=== PATIENT | female | born 1955 | race Caucasian/White ===

== ENCOUNTER 2016-10-17 20:45 | Emergency (ER) | payer OTHER ==
[2016-10-17 21:43] LABS: BASOPHIL % 0.5 % (0.0-0.4); Eosinophil % 1.3 % (0.00-5.0); Granulocytes % 71.9 % (36.0-66.0); Lymphocytes % 20.8 % (24.0-44.0); Mean Cell Volume 85.3 fl (78-100); Mean Corpuscular Hemoglobin 26.7 pg (26-32); Mean Platelet Volume 10.9 fl (6-9.5); Monocytes % 5.5 % (0.0-12.0); Platelet Count 268 K/mm3 (150-450); Red Blood Count 5.65 M/mm3 (4.1-5.4); Red Cell Distribution Width 15.9 % (11.5-14.0); White Blood Count 6.3 K/mm3 (4.0-10.5)
[2016-10-17 21:44] LABS: Bacteria RARE /HPF (NEGATIVE); COMPLETE URINE MICROSCOPIC? YES; Collection Type CLEAN CATCH; Epithelial Cells FEW /HPF (FEW); Mucus SLIGHT /HPF (NEGATIVE)
[2016-10-17 21:51] LABS: ALBUMIN 3.8 g/dL (3.4-5.0); ALKALINE PHOSPHATASE 86 U/L (46-116); ANION GAP 17.9 MEQ/L (5-15); BILIRUBIN,TOTAL 0.5 mg/dL (0.2-1.0); BLOOD UREA NITROGEN 13 mg/dL (9-20); CHLORIDE 101 mEq/L (98-107); Carbon Dioxide 24.7 mEq/L (21-32); Glucose 286 MG/DL (70-110); Potassium 4.3 mEq/L (3.5-5.1); SGOT/AST 42 U/L (15-37); SGPT/ALT 59 U/L (12-78); SODIUM 139 mEq/L (136-145); Total Protein 7.8 gm/dL (6.4-8.2)
[2016-10-17] MEDS ORDERED: Phenergan 25 MG INJ IV ONE (22:36)
[2016-10-17] MEDS ORDERED: Sodium Chloride 0.9% 1000 ML 1,000 ML IV STA (22:36)
[2016-10-17] MEDS ORDERED: MORPHINE SULFATE 4 MG INJ IV ONE (22:36)
[2016-10-17] MEDS ORDERED: Sodium Chloride 0.9% 1000 ML 1,000 ML ONE (22:39)
[2016-10-17] MEDS ORDERED: MORPHINE SULFATE 4 MG INJ ONE (22:39)
[2016-10-17] MEDS ORDERED: Phenergan 25 MG INJ ONE (22:39)
--- NOTE | 2016-10-17 22:43 | ERPHSYRPT ---
- History of Present Illness Time Seen by Provider: 10/17/16 22:29 Source: patient Exam Limitations: no limitations Patient Subjective Stated Complaint: pt has been having bilat pain in her hips and buttocks that radiates donw both legs for several days -tonight she decided she couldn't take it anymore and nedded to find out what is causing the pain - she has been taking her husbands hydrocodone without releif -she is being worked up for elevated liver enzymes and her sugar has been running high recently-she thinks her right breast prosthesis is leaking and she complains of sweating Triage Nursing Assessment: pt is aw Physician History: This is a 61-year-old white female with history of diabetes, hypercholesterolemia, high blood pressure, anxiety, ovarian cancer, breast cancer She arrives with complaint of pain in her low back radiating down both bilateral hips down to her feet symptoms going on for 6 days patient states pain has been quite severe his has been so severe that she has been taking her 's pain medications She is not having any problems urinating she is having nausea and vomiting. Past medical history includes diabetes, hypercholesterolemia, high blood pressure, anxiety, ovarian cancer, breast cancer Past surgical history includes hysterectomy Timing/Duration: day(s) (6 days) Severity: moderate Modifying Factors: Improves With: nothing Associated Symptoms: nausea, vomiting, other (pain in the low lumbar area radiating down both posterior hips) Allergies/Adverse Reactions: Penicillins Allergy (Intermediate, Verified 10/17/16 21:32) Swelling Home Medications: Alprazolam [Xanax 0.25 mg] 0.25 mg PO TID PRN PRN 03/25/14 [History] Atorvastatin Calcium [Lipitor 20MG Tablet] 20 mg PO HS 03/25/14 [History] Clonidine HCl 0.1 mg [Catapres 0.1 MG] 0.1 mg PO HS 03/25/14 [History] Paroxetine HCl [Paxil] 40 mg PO HS 03/25/14 [History] Nitroglycerin 0.4 mg Tablet [Nitrostat 0.4 MG Tablet] 0.4 mg SL Q5MIN PRN MR X 3 PRN 11/18/14 [History] Hx Tetanus, Diphtheria Vaccination/Date Given: No Hx Influenza Vaccination/Date Given: No Hx Pneumococcal Vaccination/Date Given: No - Review of Systems Constitutional: No Fever, No Chills Eyes: No Symptoms Ears, Nose, & Throat: No Symptoms Respiratory: No Cough, No Dyspnea Cardiac: No Chest Pain, No Edema, No Syncope Abdominal/Gastrointestinal: Nausea, Vomiting, No Abdominal Pain, No Diarrhea, No Constipation, No Hematemesis, No Hematochezia, No Melena, No Dysphagia Genitourinary Symptoms: No Dysuria, No Vaginal Discharge, No Other Musculoskeletal: Back Pain (radiates down both posterior hips to her feet), No Deformity, No Injury, No Joint Redness, No Joint Pain Skin: No Rash Neurological: No Dizziness, No Focal Weakness, No Sensory Changes Psychological: No Symptoms Endocrine: No Symptoms All Other Systems: Reviewed and Negative - Past Medical History Pertinent Past Medical History: Yes Neurological History: No Pertinent History ENT History: No Pertinent History Cardiac History: Angina, High Cholesterol, Hypertension Respiratory History: No Pertinent History Endocrine Medical History: Diabetes Type II Musculoskeletal History: No Pertinent History GI Medical History: No Pertinent History History: Other Psycho-Social History: Anxiety, Depression Female Reproductive Disorders: Breast Cancer, Ovarian Cancer Other Medical History: BREAST CA-7 YRS IN REMISSION - Past Surgical History Past Surgical History: Yes Neuro Surgical History: No Pertinent History Cardiac: No Pertinent History Respiratory: No Pertinent History Gastrointestinal: No Pertinent History Genitourinary: No Pertinent History Musculoskeletal: No Pertinent History Female Surgical History: No Pertinent History, Hysterectomy, Mastectomy, Other - Social History Smoking Status: Former smoker Exposure to second hand smoke: No Drug Use: none Patient Lives Alone: No Significant Family History: no pertinent family hx - Female History Hx Last Menstrual Period: hyst - Nursing Vital Signs Nursing Vital Signs: Initial Vital Signs Temperature 98.4 F Temperature Source Oral Pulse Rate 68 Respiratory Rate 16 Blood Pressure 140/78 Pain Intensity 3 - Physical Exam General Appearance: no apparent distress, alert, other (Patient apparently cryingwhen nurse was in the room patient oes not appear to be inacute distress) Eye Exam: PERRL/EOMI (when I see patient), eyes nml inspection Ears, Nose, Throat Exam: normal ENT inspection, TMs normal, pharynx normal, moist mucous membranes Neck Exam: normal inspection, non-tender, supple, full range of motion Respiratory Exam: normal breath sounds, lungs clear, No respiratory distress Cardiovascular Exam: regular rate/rhythm, normal heart sounds, normal peripheral pulses Gastrointestinal/Abdomen Exam: soft, normal bowel sounds, No tenderness, No mass Back Exam: normal range of motion Extremity Exam: normal inspection, normal range of motion, other Neurologic Exam: alert, oriented x 3, cooperative, normal mood/affect, nml cerebellar function, nml station & gait, sensation nml, No motor deficits Skin Exam: normal color, warm, dry, No rash Lymphatic Exam: No adenopathy SpO2 Interpretation: normal SpO2: 96 Oxygen Delivery: Room Air Ordered Tests: Active Orders 24 hr Category Date Time Status Clean Catch Urine Specimen STAT Care 10/17/16 21:35 Active IV Insertion STAT Care 10/17/16 22:36 Active LUMBAR COMPLETE (MIN 4 VIEWS) Stat Exams 10/17/16 21:35 Taken PELVIS (1 OR 2 VIEWS) Stat Exams 10/17/16 21:35 Taken CBC W DIFF Stat Lab 10/17/16 21:25 Completed CMP Stat Lab 10/17/16 21:25 Completed UA W/ MICROSCOPIC Stat Lab 10/17/16 21:20 Completed Medication Summary Discontinued Medications Generic Name Dose Route Start Last Admin Trade Name Ugoq PRN Reason Stop Dose Admin Sodium Chloride 1,000 mls @ 999 mls/hr 10/17/16 22:36 10/17/16 22:40 Sodium Chloride 0.9% 1000 Ml IV 10/17/16 23:36 999 mls/hr .Q1H1M STA Administration Sodium Chloride Confirm 10/17/16 22:39 Sodium Chloride 0.9% 1000 Ml Administered 10/17/16 22:40 Dose 1,000 mls @ ud .ROUTE .STK-MED ONE Morphine Sulfate 4 mg 10/17/16 22:36 10/17/16 22:40 Morphine Sulfate 4 Mg Inj IV 10/17/16 22:37 4 mg STAT ONE Administration Morphine Sulfate Confirm 10/17/16 22:39 Morphine Sulfate 4 Mg Inj Administered 10/17/16 22:40 Dose 4 mg .ROUTE .STK-MED ONE Promethazine HCl 12.5 mg 10/17/16 22:36 10/17/16 22:40 Phenergan 25 Mg Inj IV 10/17/16 22:37 12.5 mg STAT ONE Administration Promethazine HCl Confirm 10/17/16 22:39 Phenergan 25 Mg Inj Administered 10/17/16 22:40 Dose 25 mg .ROUTE .STK-MED ONE Lab/Rad Data: Laboratory Result Diagrams 10/17/16 21:25 10/17/16 21:25 Laboratory Results 10/17/16 10/17/16 10/17/16 Range/Units 21:25 21:25 21:20 WBC 6.3 (4.0-10.5) K/mm3 RBC 5.65 H (4.1-5.4) M/mm3 Hgb 15.1 (12.0-16.0) gm/dl Hct 48.2 H (35-47) % MCV 85.3 (78-100) fl MCH 26.7 (26-32) pg MCHC 31.3 L (32-36) g/dl RDW 15.9 H (11.5-14.0) % Plt Count 268 (150-450) K/mm3 MPV 10.9 H (6-9.5) fl Gran % 71.9 H (36.0-66.0) % Lymphocytes % 20.8 L (24.0-44.0) % Monocytes % 5.5 (0.0-12.0) % Eosinophils % 1.3 (0.00-5.0) % Basophils % 0.5 (0.0-0.4) % Basophils # 0.03 (0-0.4) Sodium 139 (136-145) mEq/L Potassium 4.3 (3.5-5.1) mEq/L Chloride 101 (98-107) mEq/L Carbon Dioxide 24.7 (21-32) mEq/L Anion Gap 17.9 H (5-15) MEQ/L BUN 13 (9-20) mg/dL Creatinine 0.92 (0.55-1.30) mg/dl Estimated GFR > 60 ML/MIN Glucose 286 H (70-110) MG/DL Calcium 9.4 (8.5-10.1) mg/dL Total Bilirubin 0.5 (0.2-1.0) mg/dL AST 42 H (15-37) U/L ALT 59 (12-78) U/L Alkaline Phosphatase 86 (46-116) U/L Serum Total Protein 7.8 (6.4-8.2) gm/dL Albumin 3.8 (3.4-5.0) g/dL Ur Collection Type CLEAN CATCH Urine Color YELLOW (YELLOW) Urine Appearance SLIGHTLY CLOUDY (CLEAR) Urine pH 5.0 (5-6) Ur Specific [place] >=1.030 (1.005-1.025) Urine Protein TRACE (Negative) Urine Glucose (UA) >=1000 (NEGATIVE) mg/dL Urine Ketones NEGATIVE (NEGATIVE) Urine Nitrite NEGATIVE (NEGATIVE) Urine Bilirubin NEGATIVE (NEGATIVE) Urine Urobilinogen 0.2 (0-1) mg/dL Urine WBC (Auto) NEGATIVE (NEGATIVE) Urine RBC (Auto) TRACE NON-HEM (0-5) Anthony/ul Urine Microscopic RBC 0-2 (0-2) /HPF Ur Epithelial Cells FEW (FEW) /HPF Urine Bacteria RARE (NEGATIVE) /HPF Urine Mucus SLIGHT (NEGATIVE) /HPF Specimen Received 10/17/16:2119 - Progress Progress: improved Progress Note: 10/17/16 22:44 This is a 61-year-old white female with history of hypercholesterolemia high blood pressure anxiety, diabetes she arrives with complaint of pain in her low back radiating to both hips symptoms going on for 6 days. She states that she has been having nausea and vomiting. She states her pain has been so bad that she has been taking her 's pain medications. On interview patient apparently was crying during interview with the nurse when I come in patient does not appear to be in acute distress. She is able to flex both hips to 90 she is able to flex both knees. 90 she is able to have leg lifts bilaterally to 60 without pain she is tender in the low lumbar region. Will go ahead and obtain LS-spine, labs on this patient essentially normal patient does state that she's been vomiting and feels dehydrated she does have a specific gravity of greater than 1.030 glucose in her urine was greater than 1000 CBC essentially normal glucose for serum was 286 Will give patient morphine and Phenergan for pain 10/18/16 00:17 Patient feeling better after morphine. Labs essentially normal with the exception of elevated glucose. X-ray lumbar spine calcified aorta no acute fractures or dislocation. X-ray pelvis no acute fractures or dislocation. Lower extremity pulses intact 2 over 4 abdomen no masses. Will give patient a second dose of morphine plan home [place] for pain. Patient will need to follow-up with Dr. Selby. - Departure Time of Disposition: 00:18 Departure Disposition: Home Clinical Impression: Back pain Qualifiers: Back pain location: low back pain Chronicity: acute Back pain laterality: bilateral Sciatica presence: with sciatica Sciatica laterality: bilateral sciatica Qualified Code(s): M54.42 - Lumbago with sciatica, left side; M54.41 - Lumbago with sciatica, right side Condition: Fair Critical Care Time: No Instructions: Low Back Pain Additional Instructions: Return home. [place] 5/325 one to 2 orally every 4-6 hours as needed for pain #15. Follow-up with Dr. Selby. Return for acute distress or for severe symptoms. Prescriptions: Hydrocodone Bit/Acetaminophen [[place] 5/325Mg] 2 tab PO Q4-6HPRN PRN #15 tablet PRN Reason: Pain
[2016-10-18] MEDS ORDERED: NORCO 5/325 MG PO ONE (00:25)
[2016-10-18] MEDS ORDERED: MORPHINE SULFATE 4 MG INJ IV ONE (00:25)
[2016-10-18] MEDS ORDERED: NORCO 5/325 MG ONE (00:27)
[2016-10-18] MEDS ORDERED: MORPHINE SULFATE 4 MG INJ ONE (00:27)
[2016-10-18 00:43] VITALS: BP 132/71; PULSE 75; O2SAT 98
--- NOTE | 2016-10-18 08:55 | XRAY ---
Indication: Bilateral hip pain. Comparison: None Single AP pelvis demonstrates mild lumbosacral junction degenerative facet arthropathy and left pelvic phlebolith. No other bony, articular, or soft tissue abnormalities.
--- NOTE | 2016-10-18 08:57 | XRAY ---
Indication: Low back and bilateral hip pain. Comparison: None 5 views of the lumbar spine demonstrates 5 lumbar vertebral segments in normal alignment with minimal multilevel anterior endplate spurring and mild L5-S1 disc space narrowing with bilateral facet arthropathy. No acute fracture, subluxation, or pars interarticularis defect. Mild aortic calcifications. Impression: Degenerative changes in a otherwise negative lumbar spine.
== END 2016-10-18 00:42 | disposition home or self-care (01) ==
LOC: ED 20:45
DX: M54.2 Cervicalgia (principal); M54.41 Lumbago with sciatica, right side; R11.2 Nausea with vomiting, unspecified; E11.9 Type 2 diabetes mellitus without complications
CPT/HCPCS: 36000; 36415; 72110; 72170; 80053; 81000; 85025; 96360; 96374; 96375; 96376; 99283; J2270; J2550

== ENCOUNTER 2017-01-21 18:56 | Emergency (ER) | payer OTHER ==
[2017-01-21] MEDS ORDERED: Sodium Chloride 0.9% 1000 ML 1,000 ML IV SCH (19:15)
[2017-01-21] MEDS ORDERED: Hydromorphone 1 mg/ml Ampule IV ONE (19:15)
[2017-01-21] MEDS ORDERED: Zofran 4 MG/2 ML VIAL IV ONE (19:15)
[2017-01-21] MEDS ORDERED: Hydromorphone 1 mg/ml Ampule ONE (19:25)
[2017-01-21] MEDS ORDERED: Zofran 4 MG/2 ML VIAL ONE (19:25)
[2017-01-21] MEDS ORDERED: Sodium Chloride 0.9% 1000 ML 1,000 ML ONE (19:26)
[2017-01-21 19:32] LABS: BASOPHIL % 0.5 % (0.0-0.4); Eosinophil % 1.3 % (0.00-5.0); Granulocytes % 62.5 % (36.0-66.0); Lymphocytes % 27.5 % (24.0-44.0); Mean Cell Volume 85.1 fl (78-100); Mean Corpuscular Hemoglobin 27.2 pg (26-32); Mean Platelet Volume 10.7 fl (6-9.5); Monocytes % 8.2 % (0.0-12.0); Platelet Count 296 K/mm3 (150-450); Red Blood Count 5.44 M/mm3 (4.1-5.4); Red Cell Distribution Width 15.4 % (11.5-14.0); White Blood Count 7.6 K/mm3 (4.0-10.5)
[2017-01-21 19:50] VITALS: BP 146/67
[2017-01-21 19:51] LABS: ALBUMIN 3.5 g/dL (3.4-5.0); ANION GAP 13.9 MEQ/L (5-15); BILIRUBIN,TOTAL 0.4 mg/dL (0.2-1.0); Potassium 4.2 mEq/L (3.5-5.1); Total Protein 7.8 gm/dL (6.4-8.2)
--- NOTE | 2017-01-21 20:02 | ERPHSYRPT ---
- History of Present Illness Time Seen by Provider: 01/21/17 19:00 Historian: patient, family Exam Limitations: no limitations Patient Subjective Stated Complaint: reports constant RUQ abd pain since 1900 yesterday, "after eating pizza" denies other GI/ symptoms Triage Nursing Assessment: ambulatory to treatment area - slow/steady gait - moves all extremities with equal strength. resps shallow per pain - non- labored. skin pale/dry - no rash/injury. alert/oriented - grimmacing affect Physician History: patient developed RUQ abd pain after eating sausage and pepperoni pizza last night; constant; no radiation; no N&V; no f or chilss; no prior hx; no trauma or travel; no exposures; BMAnd voids ok; hx of irritable bowel; this is different Timing/Duration: yesterday (onset), gradual onset, worse Activities at Onset: none Quality: aching, sharpness Abdominal Pain Onset Location: RUQ Pain Radiation: no radiation Severity of Pain-Max: moderate (7/10) Severity of Pain-Current: moderate (7/10) Modifying Factors: Improves With: nothing Associated Symptoms: denies symptoms Previous symptoms: no prior history Allergies/Adverse Reactions: Penicillins Allergy (Intermediate, Verified 01/21/17 19:02) Swelling Home Medications: Alprazolam [Xanax 0.25 mg] 0.25 mg PO TID PRN PRN 03/25/14 [History] Atorvastatin Calcium [Lipitor 20MG Tablet] 20 mg PO HS 03/25/14 [History] Paroxetine HCl [Paxil] 40 mg PO HS 03/25/14 [History] Empagliflozin [Jardiance] 0 mg DAILY 10/18/16 [History] Metformin HCl 1000 mg [Glucophage 1000 MG] 500 mg PO BID 10/18/16 [History] Omeprazole [Prilosec] 0 mg PO DAILY 10/18/16 [History] Stomach Med 10/18/16 [History] Hx Tetanus, Diphtheria Vaccination/Date Given: No Hx Influenza Vaccination/Date Given: No Hx Pneumococcal Vaccination/Date Given: No Immunizations Up to Date: Yes - Review of Systems Constitutional: No Symptoms Eyes: No Symptoms Ears, Nose, & Throat: No Symptoms Respiratory: No Cough, No Dyspnea, No Wheezing Cardiac: No Chest Pain, No Palpitations, No Syncope Abdominal/Gastrointestinal: Abdominal Pain, Constipation (chronic), No Nausea, No Vomiting, No Diarrhea Genitourinary Symptoms: No Symptoms Musculoskeletal: No Symptoms Skin: No Symptoms Neurological: No Symptoms Psychological: Depression, No Suicidal Ideations, No Homicidal Ideations Endocrine: Polyuria, Polydipsia, Excessive Sweating Hematologic/Lymphatic: No Symptoms Immunological/Allergic: No Symptoms - Past Medical History Pertinent Past Medical History: Yes Neurological History: No Pertinent History ENT History: No Pertinent History Cardiac History: Angina, High Cholesterol, Hypertension Respiratory History: No Pertinent History Endocrine Medical History: Diabetes Type II Musculoskeletal History: No Pertinent History GI Medical History: No Pertinent History History: Other Psycho-Social History: Anxiety, Depression Female Reproductive Disorders: Breast Cancer, Ovarian Cancer Other Medical History: BREAST CA - Past Surgical History Past Surgical History: Yes Neuro Surgical History: No Pertinent History Cardiac: No Pertinent History Respiratory: No Pertinent History Gastrointestinal: No Pertinent History Genitourinary: No Pertinent History Musculoskeletal: No Pertinent History Female Surgical History: No Pertinent History, Hysterectomy, Mastectomy, Other - Social History Smoking Status: Never smoker Exposure to second hand smoke: No Alcohol Use: None Drug Use: none Patient Lives Alone: No Significant Family History: no pertinent family hx - Female History Hx Last Menstrual Period: n/a Hx Now: No - Nursing Vital Signs Nursing Vital Signs: Initial Vital Signs Temperature 98.1 F Temperature Source Oral Pulse Rate 64 Respiratory Rate 16 Blood Pressure [] 146/67 Pain Intensity 7 - Physical Exam General Appearance: moderate distress (RUQ abd pain), alert, obese, other ( clammy chronic) Eye Exam: PERRL/EOMI, eyes nml inspection, No photophobia Ears, Nose, Throat Exam: normal ENT inspection, TMs normal, pharynx normal, moist mucous membranes Neck Exam: normal inspection, non-tender, supple, full range of motion, No meningismus, No JVD Respiratory Exam: normal breath sounds, lungs clear, airway intact, No chest tenderness, No respiratory distress Cardiovascular Exam: regular rate/rhythm, normal heart sounds, normal peripheral pulses, capillary refill <2 sec, No murmur Gastrointestinal/Abdomen Exam: soft, normal bowel sounds, tenderness (RUQ pos carlton sign), No distention, No guarding, No pulsatile mass, No rebound, No organomegaly Pelvic Exam: deferred Rectal Exam: deferred Back Exam: normal inspection, normal range of motion, No CVA tenderness, No vertebral tenderness Extremity Exam: normal inspection, normal range of motion, No calf tenderness, No glenys's sign Neurologic Exam: alert, oriented x 3, cooperative, tugger operator II-XII nml as tested, normal mood/affect, nml cerebellar function, nml station & gait Skin Exam: normal color, warm, No rash, No other (c) SpO2 Interpretation: normal (lammy chronic) SpO2: 94 Oxygen Delivery: Room Air - Course Nursing assessment & vital signs reviewed: Yes - Radiology Exams Abdomen X-ray Interpretation: Interpreted by me, Other (NAD) Ordered Tests: Active Orders 24 hr Category Date Time Status IV Insertion STAT Care 01/21/17 19:15 Active Re-Check Vital Signs STAT Care 01/21/17 19:15 Active KUB Stat Exams 01/21/17 19:16 Taken AMYLASE Stat Lab 01/21/17 19:20 Completed CBC W DIFF Stat Lab 01/21/17 19:20 Completed CMP Stat Lab 01/21/17 19:20 Completed LIPASE Stat Lab 01/21/17 19:20 Completed Medication Summary Generic Name Dose Route Start Last Admin Trade Name Freq PRN Reason Stop Dose Admin Sodium Chloride 1,000 mls @ 100 mls/hr 01/21/17 19:15 01/21/17 19:30 Sodium Chloride 0.9% 1000 Ml IV 02/20/17 19:14 100 mls/hr .Q10H LEIDA Administration Discontinued Medications Generic Name Dose Route Start Last Admin Trade Name Freq PRN Reason Stop Dose Admin Hydromorphone HCl 1 mg 01/21/17 19:15 01/21/17 19:30 Hydromorphone 1 Mg/Ml Ampule IV 01/21/17 19:16 1 mg STAT ONE Administration Hydromorphone HCl Confirm 01/21/17 19:25 Hydromorphone 1 Mg/Ml Ampule Administered 01/21/17 19:26 Dose 1 mg .ROUTE .STK-MED ONE Ondansetron HCl 4 mg 01/21/17 19:15 01/21/17 19:30 Zofran 4 Mg/2 Ml Vial IV 01/21/17 19:16 4 mg STAT ONE Administration Ondansetron HCl Confirm 01/21/17 19:25 Zofran 4 Mg/2 Ml Vial Administered 01/21/17 19:26 Dose 4 mg .ROUTE .STK-MED ONE Lab/Rad Data: Laboratory Result Diagrams 01/21/17 19:20 01/21/17 19:20 Laboratory Results 01/21/17 01/21/17 Range/Units 19:20 19:20 WBC 7.6 (4.0-10.5) K/mm3 RBC 5.44 H (4.1-5.4) M/mm3 Hgb 14.8 (12.0-16.0) gm/dl Hct 46.3 (35-47) % MCV 85.1 (78-100) fl MCH 27.2 (26-32) pg MCHC 32.0 (32-36) g/dl RDW 15.4 H (11.5-14.0) % Plt Count 296 (150-450) K/mm3 MPV 10.7 H (6-9.5) fl Gran % 62.5 (36.0-66.0) % Lymphocytes % 27.5 (24.0-44.0) % Monocytes % 8.2 (0.0-12.0) % Eosinophils % 1.3 (0.00-5.0) % Basophils % 0.5 (0.0-0.4) % Basophils # 0.04 (0-0.4) Sodium 134 L (136-145) mEq/L Potassium 4.2 (3.5-5.1) mEq/L Chloride 99 (98-107) mEq/L Carbon Dioxide 25.0 (21-32) mEq/L Anion Gap 13.9 (5-15) MEQ/L BUN 13 (9-20) mg/dL Creatinine 1.02 (0.55-1.30) mg/dl Estimated GFR 58 ML/MIN Glucose 266 H (70-110) MG/DL Calcium 9.3 (8.5-10.1) mg/dL Total Bilirubin 0.4 (0.2-1.0) mg/dL AST 27 (15-37) U/L ALT 44 (12-78) U/L Alkaline Phosphatase 99 (46-116) U/L Serum Total Protein 7.8 (6.4-8.2) gm/dL Albumin 3.5 (3.4-5.0) g/dL Amylase 34 (25-115) U/L Lipase 137 (73-393) U/L reviewed - Progress Progress: improved (after meds), re-examined (after xr and meds) Progress Note: 01/21/17 20:02 rechecked; resting comfortably after meds; XR neg; labs neg except elevated BS 229; pain reduced to 2-3/10; abdomen non-tneder; discussed findings; will recheck; at bedside 01/21/17 20:18 recheck; at bedside; pain resolved; no other symptoms; reviewed results ; discussed treatment plan and instructions Counseled pt/family regarding: lab results, diagnosis, need for follow-up, rad results - Departure Time of Disposition: 20:19 Departure Disposition: Home Clinical Impression: Abdominal pain, Gallbladder attack Condition: Stable Critical Care Time: No Referrals: WAYNE SELBY [Primary Care Provider] - Instructions: Abdominal Pain-Adult, General Gallbladder Conditions Additional Instructions: gall bladder diet; GB US results to Dr Selby Follow-up with family doctor as directed. Call for appointment. Return if any problems. If you smoke please stop. Call or follow up with your family doctor for assistance if you need it to stop. Please wear your seatbelt when driving. Have a nice day. Thank you for allowing us to participate in your care today. :o) Dr Jose Ramon Auguste Prescriptions: Hydrocodone/Acetaminophen [Vicodin 5-300 mg Tablet] 1 each PO Q8H PRN PRN #10 tablet PRN Reason: Pain
[2017-01-21 21:08] VITALS: PULSE 82; O2SAT 99
--- NOTE | 2017-01-22 08:17 | XRAY ---
Indication: Right upper quadrant pain. Comparison: None KUB nonacute and nonobstructed. Solid organs and osseous structures unremarkable. Lung bases clear. Impression: Negative KUB.
== END 2017-01-21 21:09 | disposition home or self-care (01) ==
LOC: ED 18:56
DX: R10.11 Right upper quadrant pain (principal); Z79.899 Other long term (current) drug therapy; Z79.84 Long term (current) use of oral hypoglycemic drugs
CPT/HCPCS: 36000; 36415; 74000; 80053; 82150; 82962; 83690; 85025; 96360; 96361; 96374; 96375; 99284; 99285; J1170; J2405

== ENCOUNTER 2019-10-17 13:19 | Emergency (ER) | payer MEDICARE, OTHER ==
[2019-10-17] MEDS ORDERED: TORAdol 30 mg Injection IV ONE (15:13)
--- NOTE | 2019-10-17 15:31 | XRAY ---
Indication: Pneumonia. Flu symptoms. Comparison: December 09, 2015. Portable chest remains clear. Heart is not enlarged for AP portable technique. New left Port-A-Cath without complications. Bony thorax intact again with right axilla surgical clips and bilateral breast implants. Impression: Nonacute chest with chronic features.
[2019-10-17] MEDS ORDERED: TORAdol 30 mg Injection ONE (15:37)
[2019-10-17 15:56] LABS: Absolute Neutrophil Ct (ANC) 4.79 (1.4-6.9); BASOPHIL % 0.3 % (0.0-0.4); Basophil (Absolute #) 0.02 (0-0.4); Eosinophil % 0.6 % (0.00-5.0); Eosinophil (Absolute #) 0.04 (0-0.5); Hematocrit 42.2 % (35-47); Hemoglobin 13.1 gm/dl (12.0-16.0); Lymphocyte (Absolute #) 1.32 (1.0-4.6); Lymphocytes % 19.6 % (24.0-44.0); Mean Cell Volume 89.4 fl (78-100); Mean Corpuscular Hemoglobin 27.8 pg (26-32); Monocyte (Absolute #) 0.58 (0.0-1.3); Monocytes % 8.6 % (0.0-12.0); Neutrophil % 70.9 % (36.0-66.0); Platelet Count 179 K/mm3 (150-450); Red Blood Count 4.72 M/mm3 (4.1-5.4); Red Cell Distribution Width 15.7 % (11.5-14.0); White Blood Count 6.8 K/mm3 (4.0-10.5)
[2019-10-17 16:07] LABS: ALBUMIN 3.8 g/dL (3.5-5.0); ALKALINE PHOSPHATASE 132 U/L (38-126); ANION GAP 10.3 MEQ/L (5-15); BLOOD UREA NITROGEN 13 mg/dL (7-17); CHLORIDE 99 mmol/L (98-107); Calcium 9.3 mg/dL (8.4-10.2); Carbon Dioxide 30 mmol/L (22-30); Creatinine 1 0.74 mg/dL (0.52-1.04); Glucose 315 mg/dL (74-106); Potassium 4.1 mmol/L (3.5-5.1); SGOT/AST 39 U/L (14-36); SGPT/ALT 41 U/L (0-35); SODIUM 135 mmol/L (137-145); Total Protein 7.3 g/dL (6.3-8.2)
[2019-10-17 16:42] LABS: INFLUENZA A NEGATIVE (NEGATIVE); INFLUENZA B NEGATIVE (NEGATIVE)
[2019-10-17 16:43] LABS: RESPIRATORY SYNCTIAL VIRUS POSITIVE (Negative)
--- NOTE | 2019-10-17 17:21 | ERPHSYRPT ---
- History of Present Illness Time Seen by Provider: 10/17/19 15:17 Source: patient, family Exam Limitations: no limitations Patient Subjective Stated Complaint: "I have had a lot of fatigue and all over weakness, headache, cough, chills, body aches since New Years Yesenia. I have been diagnosed with teminal liver cancer, my oncologist gave me 2 months to live 18 months ago. I have been off chemo for a little while now but am suppose to go to [facility] tomorrow." Triage Nursing Assessment: Pt presents to ER with complaints of bounding headache, body aches, chills, cough, and runny nose since New Years yesenia. Pt is a [place] patient. Dx with terminal liver cancer. Pt is alert and oriented x 3. Appears weak and fatigued. Pt lungs are clear throughout, resp easy and unlabored at this time. Rates headache pain 8/10 scale. Pt denies nausea, vomiting, or diarrhea. Pt abd is soft and nontender to touch. Skin pale, warm, and dry. Afebrile. Pt walks and communicates without difficulty. Physician History: 64 yo presented with 10 days of URI symptoms with progressive worsening with nasal/sinus congestion and today started to have mild cough. no fever but chills and bodyaches with headache off and on . headache is mild with no other neuro sx. she has h/o metastatic liver cancer andis scheduled to see oncologist tomorrow. no abdominal pain/N/V. Timing/Duration: day(s) (8), worse Cough Quality/Degree: dry cough Possible Cause: unknown cause Modifying Factors: Improves With: nothing Associated Symptoms: chills, chest pain/soreness, cough, facial pain, headache, muscle aches, nasal congestion, nasal drainage, sore throat Allergies/Adverse Reactions: Penicillins Allergy (Intermediate, Verified 10/17/19 14:34) Swelling Home Medications: PARoxetine HCl [Paxil] 40 mg PO HS 03/25/14 [History] Hx Tetanus, Diphtheria Vaccination/Date Given: No Hx Influenza Vaccination/Date Given: No Hx Pneumococcal Vaccination/Date Given: No Immunizations Up to Date: No - Review of Systems Constitutional: Chills, Fatigue, Malaise Eyes: No Symptoms Ears, Nose, & Throat: Nose Congestion, Nose Discharge, Sinus Drainage, Throat Pain Respiratory: Cough Cardiac: No Symptoms Abdominal/Gastrointestinal: No Symptoms Genitourinary Symptoms: No Symptoms Musculoskeletal: Myalgias Neurological: No Symptoms Psychological: No Symptoms Endocrine: No Symptoms Hematologic/Lymphatic: No Symptoms Immunological/Allergic: No Symptoms - Past Medical History Pertinent Past Medical History: Yes Neurological History: No Pertinent History ENT History: No Pertinent History Cardiac History: Angina, High Cholesterol, Hypertension Respiratory History: No Pertinent History Endocrine Medical History: Diabetes Type II Musculoskeletal History: No Pertinent History GI Medical History: No Pertinent History History: Other Psycho-Social History: Anxiety, Depression Female Reproductive Disorders: Breast Cancer Other Medical History: LIVER CANCER - Past Surgical History Past Surgical History: Yes Neuro Surgical History: No Pertinent History Cardiac: No Pertinent History Respiratory: No Pertinent History Gastrointestinal: No Pertinent History Genitourinary: No Pertinent History Musculoskeletal: No Pertinent History Female Surgical History: No Pertinent History, Hysterectomy, Mastectomy, Other Other Surgical History: RECTAL REPAIR, BLADDER REPAIR - Social History Smoking Status: Former smoker Exposure to second hand smoke: No Alcohol Use: None Drug Use: none Patient Lives Alone: No Significant Family History: no pertinent family hx - Nursing Vital Signs Nursing Vital Signs: Initial Vital Signs Temperature 98.4 F 10/17/19 14:17 Pulse Rate 72 10/17/19 14:17 Respiratory Rate 18 10/17/19 14:17 Blood Pressure 166/76 10/17/19 14:17 O2 Sat by Pulse Oximetry 96 10/17/19 14:17 Pain Scale Pain Intensity 7 - Physical Exam General Appearance: no apparent distress Eye Exam: PERRL/EOMI, eyes nml inspection Ears, Nose, Throat Exam: TMs normal, pharyngeal erythema Neck Exam: normal inspection, non-tender, supple, full range of motion Respiratory Exam: normal breath sounds, lungs clear, No chest tenderness, No respiratory distress Cardiovascular Exam: regular rate/rhythm, normal heart sounds, normal peripheral pulses Gastrointestinal/Abdomen Exam: soft, normal bowel sounds, No tenderness, No distention, No mass, No guarding Back Exam: normal inspection, normal range of motion Extremity Exam: normal inspection, normal range of motion Neurologic Exam: alert, oriented x 3, cooperative, network design architect II-XII nml as tested, normal mood/affect, nml cerebellar function Skin Exam: normal color SpO2 Interpretation: normal SpO2: 94 O2 Delivery: Room Air - Course Nursing assessment & vital signs reviewed: Yes Ordered Tests: Active Orders 24 hr Category Date Time Status CHEST 1 VIEW (PORTABLE) Stat Exams 10/17/19 15:13 Completed CBC W DIFF Stat Lab 10/17/19 15:42 Completed CMP Stat Lab 10/17/19 15:42 Completed Urine Triage Profile Stat Lab 10/17/19 15:07 Uncollected Medication Summary Discontinued Medications Generic Name Dose Route Start Last Admin Trade Name Noreen PRN Reason Stop Dose Admin Ketorolac Tromethamine 30 mg 10/17/19 15:13 10/17/19 15:38 Toradol 30 Mg Injection IV 10/17/19 15:14 30 mg STAT ONE Administration Ketorolac Tromethamine Confirm 10/17/19 15:37 Toradol 30 Mg Injection Administered 10/17/19 15:38 Dose 30 mg .ROUTE .STMixers-MED ONE Lab/Rad Data: Laboratory Result Diagrams 10/17/19 15:42 10/17/19 15:42 Laboratory Results 10/17/19 10/17/19 10/17/19 Range/Units 15:50 15:42 15:42 WBC 6.8 (4.0-10.5) K/mm3 RBC 4.72 (4.1-5.4) M/mm3 Hgb 13.1 (12.0-16.0) gm/dl Hct 42.2 (35-47) % MCV 89.4 (78-100) fl MCH 27.8 (26-32) pg MCHC 31.0 L (32-36) g/dl RDW 15.7 H (11.5-14.0) % Plt Count 179 (150-450) K/mm3 MPV 10.0 (7.5-11.0) fl Gran % 70.9 H (36.0-66.0) % Eos # (Auto) 0.04 (0-0.5) Absolute Lymphs (auto) 1.32 (1.0-4.6) Absolute Monos (auto) 0.58 (0.0-1.3) Lymphocytes % 19.6 L (24.0-44.0) % Monocytes % 8.6 (0.0-12.0) % Eosinophils % 0.6 (0.00-5.0) % Basophils % 0.3 (0.0-0.4) % Absolute Granulocytes 4.79 (1.4-6.9) Basophils # 0.02 (0-0.4) Sodium 135 L (137-145) mmol/L Potassium 4.1 (3.5-5.1) mmol/L Chloride 99 (98-107) mmol/L Carbon Dioxide 30 (22-30) mmol/L Anion Gap 10.3 (5-15) MEQ/L BUN 13 (7-17) mg/dL Creatinine 0.74 (0.52-1.04) mg/dL Estimated GFR > 60.0 ML/MIN Glucose 315 H (74-106) mg/dL Calcium 9.3 (8.4-10.2) mg/dL Total Bilirubin 0.60 (0.2-1.3) mg/dL AST 39 H (14-36) U/L ALT 41 H (0-35) U/L Alkaline Phosphatase 132 H (38-126) U/L Serum Total Protein 7.3 (6.3-8.2) g/dL Albumin 3.8 (3.5-5.0) g/dL Influenza Type A Ag NEGATIVE (NEGATIVE) Influenza Type B Ag NEGATIVE (NEGATIVE) RSV (PCR) POSITIVE (Negative) Group A Strep Antibody NEGATIVE (NEGATIVE) - Progress Progress: improved, re-examined Air Movement: good Progress Note: 10/17/19 17:10 SHE IS GIVEN TORADOL FOR SYMPTOMATIC RELIEF AND HER HEADACHE IS GONE ON RE EVALUATION. NON FOCAL NEURO EXAM. UNREMARKABLE WORKUP IS ER EXCEPT FOR POSITIVE RSV WHICH I BELIEVE IS THE VIRAL INFECTION CAUSING HER SX. RECOMMENDED SUPPORTIVE CARE AND OUTPATIENT FOLLOW UP . DISCUSSED SX/SN OF WORSENING NEEDING RETURN WHICH SHE SEMS UNDERSTANDING. Blood Culture(s) Obtained: No Antibiotics given: No Counseled pt/family regarding: lab results, diagnosis, need for follow-up, rad results - Departure Departure Disposition: Home Clinical Impression: URI with cough and congestion Condition: Stable Critical Care Time: No Referrals: MONIKA HOLM [Primary Care Provider] - Follow Up with PCP (1-2 days for re evaluation) Additional Instructions: drink plenty of fluids. monitor blood sugar regularly. take ibuprofen /flonase as needed. follow up with PCP for re evaluations. return to ER for worsening cough/fever etc.
[2019-10-17 17:45] VITALS: BP 116/77; PULSE 70; O2SAT 100
== END 2019-10-17 17:45 | disposition home or self-care (01) ==
LOC: ED 13:19
DX: J06.9 Acute upper respiratory infection, unspecified (principal)
CPT/HCPCS: 36000; 36415; 71045; 80053; 85025; 87631; 87651; 96374; 99284; J1642; J1885

== ENCOUNTER 2020-12-18 22:50 | Emergency (ER) | payer MEDICARE, OTHER ==
--- NOTE | 2020-12-19 00:54 | ERPHSYRPT ---
- History of Present Illness Time Seen by Provider: 12/18/20 22:53 Source: patient, EMS Exam Limitations: no limitations Patient Subjective Stated Complaint: "I haven't had a bowel movement in four days." Triage Nursing Assessment: Patient reported constipation not resolved by home treatment. Denied abdominal pain, nausea, vomiting. Last BM 4 days ago. Reported history of bowel repair. Denied recent in jnjuries. Pupils 3mm PERRL. Neck supple non-tender. Symmetrical chest expansion. Heart tones regular/clear. Lungs clear to auscultation. Abdomen soft non-distended without hepatosplenomegaly. Bowel sounds present. Slight diffuse pressure to palpation of the abdomen. peripheral pulses +2 bilateral. Physician History: 65 years old female with history of metastatic cholangiocarcinoma on chemotherapy, constipation presented in the ER with inability to have a bowel movement for the last 4 days. She has taken [id number] medication along with Fleet enema with no response. Patient denies any abdominal pain but has pain in the rectal area. Patient reports she has been trying to manually disimpact herself but not successful. She denies any nausea or vomiting. Reports having similar symptoms in the past but not this severe. Denies taking any pain medications. Timing/Duration: day(s) (4), gradual onset, worse Severity: moderate Associated Symptoms: denies symptoms Allergies/Adverse Reactions: Penicillins Allergy (Intermediate, Verified 12/18/20 22:53) Swelling Home Medications: PARoxetine HCl [Paxil] 40 mg PO HS 03/25/14 [History] Alprazolam 0.25 mg [xanAX 0.25 MG] 1 tab PO DAILY PRN 12/18/20 [History] Insulin Aspart [Novolog] 5 unit SQ DAILY 12/18/20 [History] Insulin Glargine,Hum.rec.anlog [Lantus Solostar] 15 units SQ HS 12/18/20 [History] Pemigatinib [Pemazyre] 1 tab PO DAILY 12/18/20 [History] Hx Tetanus, Diphtheria Vaccination/Date Given: No Hx Influenza Vaccination/Date Given: No Hx Pneumococcal Vaccination/Date Given: No Travel Risk - International Travel Have you traveled outside of the country in past 3 weeks: No - Coronavirus Screening Are you exhibiting any of the following symptoms?: No Close contact with a COVID-19 positive Pt in past 14-21 Days: No - Review of Systems Constitutional: No Symptoms Eyes: No Symptoms Ears, Nose, & Throat: No Symptoms Respiratory: No Symptoms Cardiac: No Symptoms Abdominal/Gastrointestinal: Constipation Genitourinary Symptoms: No Symptoms Musculoskeletal: No Symptoms Neurological: No Symptoms Psychological: No Symptoms (50) Endocrine: No Symptoms Hematologic/Lymphatic: No Symptoms Immunological/Allergic: No Symptoms - Past Medical History Pertinent Past Medical History: Yes Neurological History: No Pertinent History ENT History: No Pertinent History Cardiac History: Angina, High Cholesterol, Hypertension Respiratory History: No Pertinent History Endocrine Medical History: Diabetes Type II Musculoskeletal History: No Pertinent History GI Medical History: No Pertinent History History: Other Psycho-Social History: Anxiety, Depression Female Reproductive Disorders: Breast Cancer Other Medical History: LIVER CANCER - Past Surgical History Past Surgical History: Yes Neuro Surgical History: No Pertinent History Cardiac: No Pertinent History Respiratory: No Pertinent History Gastrointestinal: No Pertinent History Genitourinary: No Pertinent History Musculoskeletal: No Pertinent History Female Surgical History: No Pertinent History, Hysterectomy, Mastectomy, Other Other Surgical History: RECTAL REPAIR, BLADDER REPAIR - Social History Smoking Status: Former smoker Exposure to second hand smoke: No Alcohol Use: None Drug Use: none Patient Lives Alone: No Significant Family History: no pertinent family hx - Female History Hx Now: No - Nursing Vital Signs Nursing Vital Signs: Initial Vital Signs Temperature 98.1 F 12/18/20 22:51 Pulse Rate 74 12/18/20 22:51 Respiratory Rate 18 12/18/20 22:51 Blood Pressure 158/70 12/18/20 22:51 O2 Sat by Pulse Oximetry 97 12/18/20 22:51 Pain Scale Pain Intensity 0 - Physical Exam General Appearance: no apparent distress, alert Eye Exam: eyes nml inspection Ears, Nose, Throat Exam: normal ENT inspection Neck Exam: normal inspection, non-tender, supple, full range of motion Respiratory Exam: normal breath sounds, lungs clear Cardiovascular Exam: regular rate/rhythm, normal heart sounds (Significant is been) Gastrointestinal/Abdomen Exam: soft, normal bowel sounds, No tenderness (2012) Back Exam: normal inspection, normal range of motion (Of absence) Extremity Exam: normal inspection, normal range of motion Neurologic Exam: alert, oriented x 3, cooperative Skin Exam: normal color SpO2 Interpretation: normal SpO2: 99 O2 Delivery: Room Air (2) Ordered Tests: Active Orders 24 hr Category Date Time Status OBSTR/ACUTE ABDOMEN SERIES Stat Exams 12/19/20 00:01 Taken - Progress Progress: improved Progress Note: 12/19/20 02:04 65 years old is evaluated for constipation. I have obtained acute abdomen series which are negative for any obstruction. She is given soapsuds enema and patient had a bowel movement while in the ER and feeling some relief. She is advised to take MiraLAX and stool softeners regularly and outpatient follow-up. I do not think she needs any other work-up and is stable for discharge. Counseled pt/family regarding: need for follow-up, rad results - Departure Departure Disposition: Home Clinical Impression: Constipation Qualifiers: Constipation type: other constipation type Qualified Code(s): K59.09 - Other constipation Condition: Stable Critical Care Time: No Referrals: LIDIA WHITFIELD, [facility] [Primary Care Provider] - (1-2 days for re evaluation) Instructions: Constipation, Adult (DC) Additional Instructions: Take MiraLAX and stool softeners regularly. Increase fiber supplements and diet. Follow-up with primary care physician for reevaluation. Prescriptions: Docusate Sodium 100 mg [Colace 100 MG] 100 mg PO BID 30 Days #60 cap Polyethylene Glycol 3350 [Miralax] 17 gm PO DAILY 30 Days #30 [email or web address]
[2020-12-19 02:40] VITALS: BP 118/50; PULSE 72; O2SAT 98
--- NOTE | 2020-12-19 09:19 | XRAY ---
Indication: Constipation. Obstruction. Comparison: Chest exam October 17, 2019. 2 view abdomen nonacute and nonobstructed with mild/moderate diffuse scattered colonic fecal debris. Solid organs unremarkable. Osseous structures intact with mild lower lumbar degenerative spondylosis. Single frontal chest again demonstrates normal heart and lungs with incidental left Port-A-Cath, bilateral breast implants, and right axilla surgical clips. Impression: Fecal stasis without obstruction. Continued nonacute one view chest with chronic features. Comment: Preliminary interpretation was made by [facility]. No critical discrepancy.
== END 2020-12-19 02:48 | disposition home or self-care (01) ==
LOC: ED 22:50
DX: K59.09 Other constipation (principal)
CPT/HCPCS: 74022; 99284

== ENCOUNTER 2020-12-25 18:45 | Emergency (ER) | payer MEDICARE, OTHER ==
[2020-12-25] MEDS ORDERED: Sodium Chloride 0.9% 1000 ML 1,000 ML IV STA (19:10)
[2020-12-25 19:39] LABS: Appearance SLIGHTLY CLOUDY (CLEAR); Bilirubin NEGATIVE (NEGATIVE); Blood NEGATIVE Ery/ul (0-5); Epithelial Cells RARE /HPF (FEW); Glucose 50 mg/dL (NEGATIVE); Ketones NEGATIVE (NEGATIVE); Leukocyte Esterase NEGATIVE (NEGATIVE); Mucus SLIGHT /HPF (NEGATIVE); Nitrite NEGATIVE (NEGATIVE); Protein,Urine Dip NEGATIVE (Negative); Specific Gravity 1.011 (1.005-1.025); Urobilinogen NEGATIVE mg/dL (0-1)
[2020-12-25] MEDS ORDERED: Sodium Chloride 0.9% 1000 ML 1,000 ML ONE (19:49)
[2020-12-25 20:12] LABS: Absolute Neutrophil Ct (ANC) 2.19 (1.4-6.9); BASOPHIL % 0.4 % (0.0-0.4); Basophil (Absolute #) 0.02 (0-0.4); Eosinophil % 1.5 % (0.00-5.0); Eosinophil (Absolute #) 0.07 (0-0.5); Hematocrit 40.8 % (35-47); Hemoglobin 12.9 gm/dl (12.0-16.0); Lymphocyte (Absolute #) 1.95 (1.0-4.6); Mean Cell Volume 90.9 fl (78-100); Mean Corpuscular Hemoglobin 28.7 pg (26-32); Mean Corpuscular Hgb Concent. 31.6 g/dl (32-36); Mean Platelet Volume 9.9 fl (7.5-11.0); Monocytes % 6.6 % (0.0-12.0); Neutrophil % 48.5 % (36.0-66.0); Platelet Count 121 K/mm3 (150-450); Red Blood Count 4.49 M/mm3 (4.1-5.4); Red Cell Distribution Width 14.9 % (11.5-14.0); White Blood Count 4.5 K/mm3 (4.0-10.5)
[2020-12-25 20:20] LABS: INR 1.07 (0.8-3.0); PROTIME 12.1 SECONDS (9.95-12.35)
[2020-12-25 20:25] LABS: ANION GAP 14.2 MEQ/L (5-15); BILIRUBIN,TOTAL 0.6 mg/dL (0.2-1.3); Calcium 9.9 mg/dL (8.4-10.2); Creatinine 1 1.13 mg/dL (0.52-1.04); EST GLOMERULAR FILTRATION RATE 51.2 ML/MIN; Total Protein 7.4 g/dL (6.3-8.2)
--- NOTE | 2020-12-25 20:44 | ERPHSYRPT ---
- History of Present Illness Time Seen by Provider: 12/25/20 19:10 Historian: patient Exam Limitations: no limitations Patient Subjective Stated Complaint: bloody stool Triage Nursing Assessment: pt to ED c/o blood in stool x 2 episodes today. repo rts bright red blood in toilet and while wiping. reports being in ED last week for constipation and enema. does c/o lower abd pain now, rates 1/10 dull. denies NV or urinary issues. 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 She denies nausea vomiting. She has very mild lower suprapubic/abdominal pain. She ordinarily has constipation. However, today she has had 4 bowel movements and 2 of them had bright red blood present. Patient is not dizzy patient is not short of breath. Patient became concerned because she is never had any side effects following or during the chemotherapy that she has had over the last several weeks. Timing/Duration: today Activities at Onset: none Quality: pressure (Mild) Abdominal Pain Onset Location: suprapubic Pain Radiation: no radiation Severity of Pain-Max: mild Severity of Pain-Current: mild Modifying Factors: Improves With: nothing Associated Symptoms: other (Bright red blood per rectum after 2 bowel movements) Previous symptoms: no prior history Allergies/Adverse Reactions: Penicillins Allergy (Intermediate, Verified 12/25/20 19:07) Swelling Home Medications: PARoxetine HCl [Paxil] 40 mg PO HS 03/25/14 [History] Alprazolam 0.25 mg [xanAX 0.25 MG] 1 tab PO DAILY PRN 12/18/20 [History] Insulin Aspart [Novolog] 5 unit SQ DAILY 12/18/20 [History] Insulin Glargine,Hum.rec.anlog [Lantus Solostar] 15 units SQ HS 12/18/20 [History] Pemigatinib [Pemazyre] 1 tab PO DAILY 12/18/20 [History] Hx Tetanus, Diphtheria Vaccination/Date Given: No Hx Influenza Vaccination/Date Given: No Hx Pneumococcal Vaccination/Date Given: No Travel Risk - International Travel Have you traveled outside of the country in past 3 weeks: No - Coronavirus Screening Are you exhibiting any of the following symptoms?: No Close contact with a COVID-19 positive Pt in past 14-21 Days: No - Review of Systems Constitutional: No Symptoms Eyes: No Symptoms Ears, Nose, & Throat: No Symptoms Respiratory: No Symptoms Cardiac: No Symptoms Abdominal/Gastrointestinal: Abdominal Pain (Mild suprapubic pressure/tenderness), Hematochezia (2 out of 4 bowel movements today) Genitourinary Symptoms: No Symptoms Musculoskeletal: No Symptoms Skin: No Symptoms Neurological: No Symptoms Psychological: No Symptoms Endocrine: No Symptoms Hematologic/Lymphatic: No Symptoms Immunological/Allergic: No Symptoms All Other Systems: Reviewed and Negative - Past Medical History Pertinent Past Medical History: Yes Neurological History: No Pertinent History ENT History: No Pertinent History Cardiac History: Angina, High Cholesterol, Hypertension Respiratory History: No Pertinent History Endocrine Medical History: Diabetes Type II Musculoskeletal History: No Pertinent History GI Medical History: No Pertinent History History: Other Psycho-Social History: Anxiety, Depression Female Reproductive Disorders: Breast Cancer Other Medical History: LIVER CANCER - Past Surgical History Past Surgical History: Yes Neuro Surgical History: No Pertinent History Cardiac: No Pertinent History Respiratory: No Pertinent History Gastrointestinal: No Pertinent History Genitourinary: No Pertinent History Musculoskeletal: No Pertinent History Female Surgical History: No Pertinent History, Hysterectomy, Mastectomy, Other Other Surgical History: RECTAL REPAIR, BLADDER REPAIR - Social History Smoking Status: Former smoker Exposure to second hand smoke: No Alcohol Use: None Drug Use: none Patient Lives Alone: No Significant Family History: no pertinent family hx - Female History Hx Now: No - Nursing Vital Signs Nursing Vital Signs: Initial Vital Signs Temperature 98.1 F 12/25/20 18:56 Pulse Rate 79 12/25/20 18:56 Respiratory Rate 18 12/25/20 18:56 Blood Pressure 154/66 12/25/20 18:56 O2 Sat by Pulse Oximetry 97 12/25/20 18:56 Pain Scale Pain Intensity 0 - Physical Exam General Appearance: no apparent distress, alert, anxiety, obese Eye Exam: PERRL/EOMI, eyes nml inspection Ears, Nose, Throat Exam: normal ENT inspection, moist mucous membranes Neck Exam: normal inspection, non-tender, supple, full range of motion Respiratory Exam: normal breath sounds, lungs clear, airway intact, No chest tenderness, No respiratory distress Cardiovascular Exam: regular rate/rhythm, normal heart sounds, normal peripheral pulses Gastrointestinal/Abdomen Exam: soft, normal bowel sounds, tenderness (Suprapubic mild pressure) Pelvic Exam: not done Rectal Exam: not done Back Exam: normal inspection, normal range of motion, No CVA tenderness, No vertebral tenderness Extremity Exam: normal inspection, normal range of motion, pelvis stable Neurologic Exam: alert, oriented x 3, cooperative, 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, normal mood/affect, nml cerebellar function, nml station & gait, sensation nml Skin Exam: normal color, warm, dry Lymphatic Exam: No adenopathy SpO2 Interpretation: normal SpO2: 96 O2 Delivery: Room Air Ordered Tests: Active Orders 24 hr Category Date Time Status IV Insertion STAT Care 12/25/20 19:10 Active Orthostatic Vital Signs STAT Care 12/25/20 19:12 Active ABDOMEN AND PELVIS W/0 CONTRAS [CT] Stat Exams 12/25/20 19:11 Taken CBC W DIFF Stat Lab 12/25/20 18:00 Completed CMP Stat Lab 12/25/20 18:00 Completed Lactic Acid Stat Lab 12/25/20 20:00 Completed PROTIME WITH INR Stat Lab 12/25/20 18:00 Completed UA W/RFX UR CULTURE Stat Lab 12/25/20 19:10 Completed Medication Summary Discontinued Medications Generic Name Dose Route Start Last Admin Trade Name Freq PRN Reason Stop Dose Admin Sodium Chloride 1,000 mls @ 999 mls/hr 12/25/20 19:10 12/25/20 19:50 Sodium Chloride 0.9% 1000 Ml IV 12/25/20 20:10 999 mls/hr .Q1H1M STA Administration Sodium Chloride Confirm 12/25/20 19:49 Sodium Chloride 0.9% 1000 Ml Administered 12/25/20 19:50 Dose 1,000 mls @ ud .ROUTE .K-MED ONE Lab/Rad Data: Laboratory Result Diagrams 12/25/20 18:00 12/25/20 18:00 Laboratory Results 12/25/20 12/25/20 12/25/20 Range/Units 20:00 19:10 18:00 WBC (4.0-10.5) K/mm3 RBC (4.1-5.4) M/mm3 Hgb (12.0-16.0) gm/dl Hct (35-47) % MCV (78-100) fl MCH (26-32) pg MCHC (32-36) g/dl RDW (11.5-14.0) % Plt Count (150-450) K/mm3 MPV (7.5-11.0) fl Gran % (36.0-66.0) % Eos # (Auto) (0-0.5) Absolute Lymphs (auto) (1.0-4.6) Absolute Monos (auto) (0.0-1.3) Lymphocytes % (24.0-44.0) % Monocytes % (0.0-12.0) % Eosinophils % (0.00-5.0) % Basophils % (0.0-0.4) % Absolute Granulocytes (1.4-6.9) Basophils # (0-0.4) PT 12.1 (9.95-12.35) SECONDS INR 1.07 (0.8-3.0) Sodium (137-145) mmol/L Potassium (3.5-5.1) mmol/L Chloride (98-107) mmol/L Carbon Dioxide (22-30) mmol/L Anion Gap (5-15) MEQ/L BUN (7-17) mg/dL Creatinine (0.52-1.04) mg/dL Estimated GFR ML/MIN Glucose (74-106) mg/dL Lactic Acid 2.1 H (0.4-2.0) Calcium (8.4-10.2) mg/dL Total Bilirubin (0.2-1.3) mg/dL AST (14-36) U/L ALT (0-35) U/L Alkaline Phosphatase (38-126) U/L Serum Total Protein (6.3-8.2) g/dL Albumin (3.5-5.0) g/dL Urine Color YELLOW (YELLOW) Urine Appearance SLIGHTLY CLOUDY (CLEAR) Urine pH 5.0 (5-6) Ur Specific [place] 1.011 (1.005-1.025) Urine Protein NEGATIVE (Negative) Urine Ketones NEGATIVE (NEGATIVE) Urine Blood NEGATIVE (0-5) Anthony/ul Urine Nitrite NEGATIVE (NEGATIVE) Urine Bilirubin NEGATIVE (NEGATIVE) Urine Urobilinogen NEGATIVE (0-1) mg/dL Ur Leukocyte Esterase NEGATIVE (NEGATIVE) Urine WBC (Auto) NONE (0-5) /HPF Urine RBC (Auto) NONE (0-2) /HPF U Epithel Cells (Auto) RARE (FEW) /HPF Urine Bacteria (Auto) NONE (NEGATIVE) /HPF Urine Mucus (Auto) SLIGHT (NEGATIVE) /HPF Urine Culture Reflexed NO (NO) Urine Glucose 50 (NEGATIVE) mg/dL 12/25/20 12/25/20 Range/Units 18:00 18:00 WBC 4.5 (4.0-10.5) K/mm3 RBC 4.49 (4.1-5.4) M/mm3 Hgb 12.9 (12.0-16.0) gm/dl Hct 40.8 (35-47) % MCV 90.9 (78-100) fl MCH 28.7 (26-32) pg MCHC 31.6 L (32-36) g/dl RDW 14.9 H (11.5-14.0) % Plt Count 121 L (150-450) K/mm3 MPV 9.9 (7.5-11.0) fl Gran % 48.5 (36.0-66.0) % Eos # (Auto) 0.07 (0-0.5) Absolute Lymphs (auto) 1.95 (1.0-4.6) Absolute Monos (auto) 0.30 (0.0-1.3) Lymphocytes % 43.0 (24.0-44.0) % Monocytes % 6.6 (0.0-12.0) % Eosinophils % 1.5 (0.00-5.0) % Basophils % 0.4 (0.0-0.4) % Absolute Granulocytes 2.19 (1.4-6.9) Basophils # 0.02 (0-0.4) PT (9.95-12.35) SECONDS INR (0.8-3.0) Sodium 138 (137-145) mmol/L Potassium 4.0 (3.5-5.1) mmol/L Chloride 99 (98-107) mmol/L Carbon Dioxide 29 (22-30) mmol/L Anion Gap 14.2 (5-15) MEQ/L BUN 17 (7-17) mg/dL Creatinine 1.13 H (0.52-1.04) mg/dL Estimated GFR 51.2 ML/MIN Glucose 210 H (74-106) mg/dL Lactic Acid (0.4-2.0) Calcium 9.9 (8.4-10.2) mg/dL Total Bilirubin 0.60 (0.2-1.3) mg/dL AST 56 H (14-36) U/L ALT 51 H (0-35) U/L Alkaline Phosphatase 171 H (38-126) U/L Serum Total Protein 7.4 (6.3-8.2) g/dL Albumin 4.0 (3.5-5.0) g/dL Urine Color (YELLOW) Urine Appearance (CLEAR) Urine pH (5-6) Ur Specific [place] (1.005-1.025) Urine Protein (Negative) Urine Ketones (NEGATIVE) Urine Blood (0-5) Anthony/ul Urine Nitrite (NEGATIVE) Urine Bilirubin (NEGATIVE) Urine Urobilinogen (0-1) mg/dL Ur Leukocyte Esterase (NEGATIVE) Urine WBC (Auto) (0-5) /HPF Urine RBC (Auto) (0-2) /HPF U Epithel Cells (Auto) (FEW) /HPF Urine Bacteria (Auto) (NEGATIVE) /HPF Urine Mucus (Auto) (NEGATIVE) /HPF Urine Culture Reflexed (NO) Urine Glucose (NEGATIVE) mg/dL - Progress Progress: unchanged, re-examined Progress Note: 12/25/20 20:43 CAT scan of the abdomen and pelvis shows liver heterogeneous in appearance with multifocal hypoattenuation's and right lobe calcification presumed related to known cholangiocarcinoma. Small hiatal hernia. Remaining CT scan of the abdomen pelvis without contrast of the abdomen and pelvis is negative Counseled pt/family regarding: lab results, diagnosis, need for follow-up, rad results - Departure Departure Disposition: Home Clinical Impression: Hematochezia Condition: Stable Critical Care Time: No Referrals: LIDIA WHITFIELD NP [Primary Care Provider] - Additional Instructions: Drink plenty of fluids. Take your medication as prescribed. Follow-up with your oncologist and your primary care doctor tomorrow for further management.
[2020-12-25 21:13] VITALS: BP 148/86; PULSE 63; O2SAT 98
--- NOTE | 2020-12-26 08:58 | XRAY ---
Indication: Rectal bleeding. Abdomen/rectal discomfort with enema for constipation. History metastatic cholangiocarcinoma and breast cancer. Multiple contiguous axial images obtained through the abdomen and pelvis without contrast as ordered. Comparison: None Lung bases demonstrates a few indeterminant posterior lower lobe sub-5 mm nodularities bilaterally. Heart is not enlarged. Small hiatal hernia with also small herniated omental fat. Partially visualized right breast implant. Stomach is moderately distended with food/fluid. Noncontrasted stomach and bowel loops appear nonobstructed. There is little to no colonic fecal debris. Normal air-filled appendix. Previous hysterectomy and cholecystectomy. No free fluid/air. Spleen is enlarged measuring 14.7 cm. Liver appears nodular and diffusely heterogeneous with multifocal hypoattenuations with punctate calcifications greatest in the right lobe anteriorly. Findings presumed related to either metastatic cholangiocarcinoma or metastatic breast cancer. Remaining pancreas, adrenal glands, kidneys, ureters, and bladder appear unremarkable for noncontrast exam. Moderate scattered aortoiliac calcifications without AAA. Osseous structures intact. No suspicious bony lesions. Impression: 1. Nodular and heterogeneous appearing liver with multifocal attenuations and calcifications either related to metastatic cholangiocarcinoma or metastatic breast cancer. Lung bases also demonstrates a few subcentimeter noncalcified nodularities possibly metastatic. Outside comparison studies recommended if available. 2. Incidental splenomegaly and small hiatal hernia. 3. Remaining CT abdomen/pelvis without contrast exam is negative.
== END 2020-12-25 21:13 | disposition home or self-care (01) ==
LOC: ED 18:45
DX: K92.1 Melena (principal); R10.30 Lower abdominal pain, unspecified; Z79.899 Other long term (current) drug therapy; C22.1 Intrahepatic bile duct carcinoma; C79.9 Secondary malignant neoplasm of unspecified site
CPT/HCPCS: 36000; 36415; 74176; 80053; 81001; 83605; 85025; 85610; 96360; 99284